=== PATIENT | female | born 1995 | race Caucasian/White ===

== ENCOUNTER 2018-05-23 17:16 | Emergency (ER) | payer OTHER, BC ==
[2018-05-23 17:25] VITALS: BP 118/86; PULSE 89; TEMP 98.6; BMI 23.6
[2018-05-23] MEDS ORDERED: IBUPROFEN 400 MG TABLET (FP) PO ONE ×2 (18:33→18:36)
--- NOTE | 2018-05-23 18:33 | PDOC ---
History of Present Illness - General Chief Complaint: Wound Stated Complaint: INFECTED NAIL Time Seen by Provider: 05/23/18 18:15 History Source: Patient Exam Limitations: Clinical Condition - History of Present Illness Initial Comments: 05/23/18 18:47 Patient with no significant past medical history present with complaint of pain and swelling to no band of left ring finger for the past 2 days. Patient reported she had fake fingernail placed on 5 days ago but denies any trauma or injury to finger. Denies any fever, chills. Denies any other symptoms Timing/Duration: other (3 days) Past History - Past Medical History Allergies/Adverse Reactions: Allergies Allergy/AdvReac Type Severity Reaction Status Date / Time No Known Allergies Allergy Verified 05/23/18 17:22 Home Medications: Ambulatory Orders Cephalexin Monohydrate [Keflex -] 500 mg PO BID 7 Days #14 capsule 05/23/18 Ibuprofen 800 mg PO Q8H PRN #20 tablet 05/23/18 Sulfamethoxazole/Trimethoprim [Bactrim Ds -] 1 tab PO BID #14 tablet 05/23/18 COPD: No Dialysis: No Liver Disease: No - Surgical History Cardiac Surgery: No Gastric Stapling: No - Immunization History Immunization Up to Date: No - Suicide/Smoking/Psychosocial Hx Smoking History: Never smoked Have you smoked in the past 12 months: No Information on smoking cessation initiated: No Hx Alcohol Use: No Drug/Substance Use Hx: No Review of Systems - Review of Systems Able to Perform ROS?: Yes Is the patient limited Serbian proficient: No Constitutional: No: Fever, Malaise, Weakness HEENTM: No: Symptoms Reported Respiratory: No: Symptoms reported Cardiac (ROS): No: Symptoms Reported ABD/GI: No: Nausea, Vomiting Musculoskeletal: Yes: See HPI, Muscle Pain (left ring finger) Integumentary: Yes: See HPI, Change in Color (left ring ringer), Change in Hair/ Nails, Erythema (around nailbed of left ring finger) All Other Systems: Reviewed and Negative *Physical Exam - Vital Signs Last Vital Signs Temp Pulse Resp BP Pulse Ox 98.6 F 89 18 118/86 98 05/23/18 17:22 05/23/18 17:22 05/23/18 17:22 05/23/18 17:22 05/23/18 17:22 - Physical Exam Comments: 05/23/18 18:51 GENERAL: Well developed, well nourished. Awake and alert. No acute distress. CARDIOVASCULAR: Regular rate and rhythm. No murmurs, rubs, or gallops. PULMONARY: No evidence of respiratory distress. Lungs clear to auscultation bilaterally. No wheezing, rales or rhonchi. ABDOMINAL: Soft. Non-tender. Non-distended. No rebound or guarding. No organomegaly. Normoactive bowel sounds MUSCULOSKELETAL : moderate tenderness over nailbed of left ring finger with severe swelling to nailbed of left ring finger. No bony deformities SKIN: Warm and dry. Normal capillary refill. moderate redness and swelling to nailbed of left ring finger NEUROLOGICAL: Alert, awake, appropriate. No motor deficits in the lower extremities. Gait is normal without ataxia. PSYCHIATRIC: Cooperative. Good eye contact. Appropriate mood and affect. General Appearance: Yes: Nourished, Appropriately Dressed. No: Apparent Distress Medical Decision Making - Medical Decision Making 05/23/18 18:19 Patient with no sig PMhx present with complains of swelling and redness around nailbed of left ring finger for 2 days Exam significant for moderate swelling with moderate erythema to cuticle nail bed of left ring finger Swelling trained after area cleaned with Betadine and puncture wound made with 18-gauge needle moderate amount of purulent drainage obtained from swelling. Wound culture obtained. Bacitracin applied to wound and wound covered with adhesive bandage patient tolerated procedure well. Patient is stable for discharge on Keflex and Bactrim for paronychia and ibuprofen as needed for pain. Follow-up given to hand specialist for reassessment in 3 days *DC/Admit/Observation/Transfer Diagnosis at time of Disposition: Paronychia of finger of left hand - Discharge Dispostion Disposition: HOME Condition at time of disposition: Stable Decision to Admit order: No - Prescriptions Prescriptions: Cephalexin Monohydrate [Keflex -] 500 mg PO BID 7 Days #14 capsule Ibuprofen 800 mg PO Q8H PRN #20 tablet PRN Reason: pain Sulfamethoxazole/Trimethoprim [Bactrim Ds -] 1 tab PO BID #14 tablet - Referrals Referrals: Andrés Garza MD [Staff Physician] - - Patient Instructions Printed Discharge Instructions: DI for Paronychia Additional Instructions: Take medications as prescribed. Apply hot compress to finger as needed for swelling. Follow-up with PCP as needed. Follow-up with referred hand specialist if no improvement in 3 days - Post Discharge Activity
== END 2018-05-23 18:50 | disposition home or self-care (01) ==
LOC: EDBD 17:16 → JERFT 17:16
PROC: 0H9GXZZ Drainage of Left Hand Skin, External Approach (ICD-10-PCS; principal; 2018-05-23)
DX: L03.012 Cellulitis of left finger (principal)
CPT/HCPCS: 87070; 87077; 87205; 99281-25